=== PATIENT | male | born 1990 | race Asian ===

== ENCOUNTER → 2019-01-16 12:03 | Day surgery (SDC) | payer OTHER ==
[~2019-01-16 12:03] MED LIST: Buffered Lidocaine 1% SYRIN* 1 ML/SYRINGE INTRADERM ONE; Bupivacaine 0.25% EPI 200,000* 30 ML SDV ONE; Cisatracurium* 2 MG/ML MDV 5 ML ONE; Dexamethasone IV* 4 MG/ML 1 ML (4 MG) IV SLOW PU ONE; Dexamethasone IV* 4 MG/ML 1 ML (4 MG) ONE; Famotidine IV* 10 MG/ML 2 ML (20 mg) IV ONE; Famotidine IV* 10 MG/ML 2 ML (20 mg) ONE; Glycopyrrolate IV* 0.2 MG/ML 1 ML VIAL ONE; Ketorolac INJ* 30 MG/ML 1 ML VIAL ONE; Lactated Ringers 1000 ML Bag* 1,000 ML IV SCH; Lidocaine 2% PF * 5 ML VIAL ONE; Midazolam* 1 MG/ML 5 ML VIAL (5 MG) ONE; Naloxone* 0.4 MG/ML 1 ML VIAL IV PRN; Neostigmine Methylsulfate* 1 MG/ML 10 ML VIAL (1 mg/ml) ONE; Ondansetron INJ* 2 MG/ML VIAL IV PRN; Ondansetron INJ* 2 MG/ML VIAL ONE; Propofol* 10 MG/ML 20 ML BTL ONE; ceFAZolin 2 GM PREMIX in ORs 2 GM/50 ML BAG ONE; fentaNYL* 50 MCG/ML 2 ML VIAL (100 MCG VIAL) IV PRN; fentaNYL* 50 MCG/ML 2 ML VIAL (100 MCG VIAL) ONE
--- NOTE | 2019-01-16 19:36 | OP ---
Operative Report - Blank - Operative Report Date of Operation: 01/16/19 Note: Pre-OP Diagnoses: chronic cholecystitis Post-op Diagnosis: same Procedure: Laparoscopic cholecystectomy Surgeon: Olivia Torrest: Génesis Anethesia: MELANY Post EBL: minimal IVF: 2200cc LR Specimen: gallbladder Drains: none
[2019-01-16 21:13] VITALS: BP 123/71
--- NOTE | 2019-01-17 15:39 | OP ---
CC: Primary Care Doctor; [facility] * DATE OF OPERATION: 01/16/19 - [facility] DATE OF : 86 SURGEON: Hoang Baker MD FILM LABORATORY TECHNICIAN: SANJAY Dodd ANESTHESIOLOGIST: Dr. Post. ANESTHESIA: General. PRE-OP DIAGNOSIS: Chronic cholecystitis. POST-OP DIAGNOSIS: Chronic cholecystitis. OPERATIVE PROCEDURE: Laparoscopic cholecystectomy. ESTIMATED BLOOD LOSS: Minimal. FLUIDS: Crystalloid fluid given, 2200 cc. SPECIMEN: Gallbladder. DRAINS: None. DESCRIPTION OF PROCEDURE: The patient was identified in the preoperative area. He was marked. Consent was signed. He was taken to the operating room and placed on the operating room table in supine position. Preoperative antibiotics were given. Sequential devices were placed on bilateral lower extremities and general anesthesia was induced. The patient's abdomen was prepped and draped in standard surgical fashion. A time-out was performed. An inferior umbilical incision was made. This was deepened down to the anterior fascia which was elevated and incised and cut down technique was carried out to get into the abdomen. A 5 mm trocar was then inserted through this and laparoscope was inserted. There was no evidence of injury from the trocar insertion, from the Veress needle. Review of the abdomen showed no free fluid. Gallbladder was large and a large mesentery. The additional trocars were then placed in following position: A 5 mm in the subxiphoid area and two 5 mm along the right costal margin. The fundus of the gallbladder was elevated above the liver. Infundibular region was retracted towards the right lower quadrant giving us a critical view of the cystic duct and common bile duct. Next, the peritoneum of the medial aspect of the gallbladder and the lateral aspect was taken with cautery and the cystic duct was isolated as was the cystic artery. These were both doubly clipped and ligated and the gallbladder was removed from the liver bed and placed in a 5 mm endoscopic retrieval bag. Review of the abdomen showed no bleeding of bile. The cystic duct stump, cystic artery stump were intact. We did have to cauterize some of the top portion of the liver. This was oozing but we gained hemostasis and then turned our attention to the gallbladder in its endoscopic retrieval bag which was then brought out through the umbilical port site. The abdomen was allowed to collapse. Trocars were removed under direct vision. The umbilical fascia was reapproximated with 0 Vicryl suture and all 4 skin incisions reapproximated with 4-0 Monocryl subcuticular sutures. Steri-Strips and sterile dressing were applied. The patient tolerated the procedure well, was transferred to the PACU in stable condition. [id number]/[facility] #: [id number] MTDD
== END | disposition home or self-care (01) ==
LOC: MERGE 12:03 → OR 12:03 → EDSEX 14:45
PROVIDERS: ATTEND Surgery
DX: K81.1 Chronic cholecystitis (principal); E78.00 Pure hypercholesterolemia, unspecified
CPT/HCPCS: 88304; J0690; J1100; J1885; J2250; J2405; J2704; J2710; J3010

== ENCOUNTER 2019-01-21 14:30 | Emergency (ER) | payer OTHER ==
[2019-01-21 16:10] LABS: ABS Eosinophils 0.1 10^3/ul (0-0.6); ABS Lymphocytes 1.9 10^3/ul (1.0-4.8); ABS Monocytes 0.4 10^3/ul (0-0.8); ABS Neutrophils 2.7 10^3/ul (1.5-7.7); Eosinophil % 1.6 %; Hematocrit 44 % (42-52); Lymphocyte % 37.6 %; Mean Corpuscular HGB Conc 34 g/dL (31-36); Mean Corpuscular Hemoglobin 27 pg (27-31); Mean Corpuscular Volume 80 fL (80-94); Mean Platelet Volume 8.5 fL (7.4-10.4); Nucleated Red Blood Cells % 0.1; Platelet Count 192 10^3/uL (150-450); Red Blood Count 5.54 10^6 /uL (4.18-5.48); Red Cell Distribution Width 13 % (10-15); White Blood Count 5.1 10^3/uL (3.5-10.8)
[2019-01-21] MEDS ORDERED: NS 0.9% 1000 ML** 1,000 ML IV ONE (16:31)
[2019-01-21] MEDS ORDERED: Meclizine TAB* 12.5 MG PO ONE (16:31)
--- NOTE | 2019-01-21 16:33 | ED ---
Dizziness - HPI Summary HPI Summary: This pt is a 28 y/o male [facility] since 3 days ago. Pt reports he had cholecystectomy on 01/16/19. He notes he felt well the next days after his surgery until 3 days ago. Pt notes he started to feel dizzy and diaphoretic 3 days ago. He describes dizziness as unsteady. Pt notes his symptoms worsened yesterday afternoon when he couldn't stand up and was holding on to the bathroom door. Per , pt was not responding to her for a several seconds and denies pt fell. Per , pt's face turned white. Pt states he then realized his was talking to him. Today pt notes he feels a subjective fever but notes his temperature is normal. Pt reports his abd is basin tender from his surgery. Pt states he has been drinking fluids and has been eating as usual. - History Of Current Complaint Chief Complaint: EDDizziness Stated Complaint: DIZZY Time Seen by Provider: 01/21/19 16:23 Hx Obtained From: Patient, Family/[employer] Supervisor - Onset/Duration: Still Present Timing: Days Severity Currently: Mild Character: Dizzy, Unable To Describe Aggravating Factor(s): Nothing Alleviating Factor(s): Nothing Associated Signs And Symptoms: Positive: Diaphoresis, Fever - subjective, Other : - POSITIVE: dizziness, pale, abd pain from surgery. Negative: Nausea, Vomiting, Chills - Allergies/Home Medications Allergies/Adverse Reactions: Allergies Allergy/AdvReac Type Severity Reaction Status Date / Time bee venom protein (honey bee) Allergy Swelling Verified 01/21/19 14:37 Of Face,Lips,& Throat PMH/Surg Hx/FS Hx/Imm Hx Endocrine/Hematology History: Denies: Hx Diabetes Cardiovascular History: Denies: Hx Hypertension - Surgical History Surgical History: Yes Surgery Procedure, Year, and Place: Cholecystectomy Infectious Disease History: No Infectious Disease History: Denies: Traveled Outside the [place] in Last 30 Days - Family History Known Family History: Negative: Cardiac Disease, Hypertension, Diabetes - Social History Alcohol Use: None Substance Use Type: Reports: None Smoking Status (MU): Never Smoked Tobacco Review of Systems Constitutional: Other - POSITIVE: pale Positive: Fever - subjective, Skin Diaphoresis ENT: Negative Cardiovascular: Negative Respiratory: Negative Positive: Abdominal Pain - post op. Negative: Vomiting, Nausea Neurological: Other - POSITIVE: dizziness All Other Systems Reviewed And Are Negative: Yes Physical Exam - Summary Physical Exam Summary: VITAL SIGNS: Reviewed. GENERAL: Patient is a well-developed and nourished male who is lying comfortable in the stretcher. Patient is not in any acute respiratory distress. HEAD AND FACE: No signs of trauma. No ecchymosis, hematomas or skull depressions. No sinus tenderness. EYES: PERRLA, EOMI x 2, No injected conjunctiva, no nystagmus. EARS: Hearing grossly intact. Ear canals and tympanic membranes are within normal limits. MOUTH: Oropharynx within normal limits. Patient with mild dry mucous membranes. NECK: Supple, trachea is midline, no adenopathy, no JVD, no carotid bruit, no c- spine tenderness, neck with full ROM. CHEST: Symmetric, no tenderness at palpation LUNGS: Clear to auscultation bilaterally. No wheezing or crackles. CVS: Regular rate and rhythm, S1 and S2 present, no murmurs or gallops appreciated. ABDOMEN: Soft, non-tender. No signs of distention. No rebound no guarding, and no masses palpated. Bowel sounds are normal. EXTREMITIES: FROM in all major joints, no edema, no cyanosis or clubbing. NEURO: Alert and oriented x 3. No acute neurological deficits. Speech is normal and follows commands. SKIN: Dry and warm Triage Information Reviewed: Yes Vital Signs On Initial Exam: Initial Vitals Temp Pulse Resp BP Pulse Ox 97.9 F 69 14 113/69 98 01/21/19 14:31 01/21/19 14:31 01/21/19 14:31 01/21/19 14:31 01/21/19 14:31 Vital Signs Reviewed: Yes Diagnostics - Vital Signs Vital Signs Temp Pulse Resp BP Pulse Ox 01/21/19 14:31 97.9 F 69 14 113/69 98 - Laboratory Lab Results: Lab Results 01/21/19 Range/Units 16:02 WBC 5.1 (3.5-10.8) 10^3/uL RBC 5.54 H (4.18-5.48) 10^6 /uL Hgb 15.0 (14.0-18.0) g/dL Hct 44 (42-52) % MCV 80 (80-94) fL MCH 27 (27-31) pg MCHC 34 (31-36) g/dL RDW 13 (10-15) % Plt Count 192 (150-450) 10^3/uL MPV 8.5 (7.4-10.4) fL Neut % (Auto) 52.4 % Lymph % (Auto) 37.6 % [place] % (Auto) 7.9 % Eos % (Auto) 1.6 % Baso % (Auto) 0.5 % Absolute Neuts (auto) 2.7 (1.5-7.7) 10^3/ul Absolute Lymphs (auto) 1.9 (1.0-4.8) 10^3/ul Absolute Monos (auto) 0.4 (0-0.8) 10^3/ul Absolute Eos (auto) 0.1 (0-0.6) 10^3/ul Absolute Basos (auto) 0.0 (0-0.2) 10^3/ul Absolute Nucleated RBC 0.0 10^3/ul Nucleated RBC % 0.1 Result Diagrams: 01/21/19 16:02 01/21/19 16:02 Lab Statement: Any lab studies that have been ordered have been reviewed, and results considered in the medical decision making process. - EKG 16:34 Cardiac Rate: NL - at 65 bpm EKG Rhythm: Sinus Rhythm Summary of EKG Findings: Sinus rhythm at 65 bpm. Early repolarization. Re-Evaluation - Re-Evaluation First Eval Re-Evaluation Time: 19:00 Change: Improved Comment: Pt is feeling better. He will be discharged home with follow up from his PCP. Dizzy Course/Dx - Course Assessment/Plan: Blood work without any significant abnormality except for glucose of 103, calcium 10.7, alkaline phosphatase 158. EKG shows a normal sinus rhythm without ST elevation. In the ED course the patient was given meclizine and the symptoms improved. On reexamination the symptoms have resolved therefore the patient will be discharged home with follow-up from his primary care physician. He will be given a prescription for meclizine. He was given instructions to return to the emergency department if he develops any other symptoms or the dizziness returns despite meclizine. The patient understands and agrees. - Diagnoses Provider Diagnoses: Vertigo Discharge ED - Sign-Out/Discharge Documenting (check all that apply): Patient Departure - Discharge home Patient Received Moderate/Deep Sedation with Procedure: No - Discharge Plan Condition: Stable Disposition: HOME Prescriptions: Meclizine TAB* [Antivert 12.5 TAB*] 25 mg PO TID PRN #30 tab PRN Reason: Vertigo Patient Education Materials: Vertigo (ED) Referrals: Audra Aguila MD [Primary Care Provider] - Additional Instructions: Please follow up with your primary care provider in 2-3 days. RETURN TO THE EMERGENCY DEPARTMENT FOR ANY WORSENING OR NEW SYMPTOMS. - Billing Disposition and Condition Condition: STABLE Disposition: Home - Attestation Statements Document Initiated by Scribe: Yes Documenting Scribe: Lina Saavedra Provider For Whom Scribe is Documenting (Include Credential): Clayton Gaxiola MD Scribe Attestation: Lina Doe, scribed for Clayton Gaxiola MD on 01/21/19 at 2147. Scribe Documentation Reviewed: Yes Provider Attestation: The documentation as recorded by the Lina justice accurately reflects the service I personally performed and the decisions made by me, Clayton Gaxiola MD Status of Scribe Document: Viewed
[2019-01-21 16:46] LABS: TSH (Thyroid Stimulating Horm) 1.24 mcIU/mL (0.34-5.60)
[2019-01-21 16:47] LABS: Albumin 4.5 g/dL (3.2-5.2); Albumin/Globulin Ratio 1.6 (1-3); BUN/Creatinine Ratio 23.2 (8-20); Calcium 10.7 mg/dL (8.6-10.3); EGFR African American 162.9 (>60); EGFR Non-African American 134.6 (>60); Globulin 2.9 g/dL (2-4); Magnesium 2.1 mg/dL (1.9-2.7); Potassium 4.4 mmol/L (3.5-5.0); Total Bilirubin 0.4 mg/dL (0.2-1.0); Total Protein 7.4 g/dL (6.4-8.9)
[2019-01-21 19:33] VITALS: BP 119/75
== END 2019-01-21 19:32 | disposition home or self-care (01) ==
LOC: ED 14:30
DX: R42 Dizziness and giddiness (principal)
CPT/HCPCS: 36415; 80053; 83605; 83735; 84443; 84484; 85025; 93005; 96360; 96361; 99282; A9270-GY